=== PATIENT | female | born 1985 | race Caucasian/White ===

== ENCOUNTER 2016-10-15 16:43 | Emergency (ER) | payer BC ==
[2016-10-15 17:04] VITALS: BP 155/100
--- NOTE | 2016-10-16 11:29 | EDM.PDOC ---
Scribed by Tika Becerra 10/15/16 [id number] for Carlos Otoole MD ED HPI GENERAL MEDICAL PROBLEM - General Source of Information: Reports: Patient, RN, RN Notes Reviewed History Limitations: Reports: No Limitations - History of Present Illness Onset: Today Location: Reports: Pelvis Quality: Reports: Ache Improves with: Reports: None Worsens with: Reports: None Associated Symptoms: Reports: No Other Symptoms <Carlos Otoole - Last Filed: 10/15/16 17:55> <Hollie Cifuentes - Last Filed: 10/15/16 19:12> - General Chief Complaint: CONTENT ADMINISTRATOR Problem Stated Complaint: PREG 5-6 WEEKS .BLEEDING. Time Seen by Provider: 10/15/16 17:13 - History of Present Illness INITIAL COMMENTS - FREE TEXT/NARRATIVE: Patient before lunch had discoloration on toilet paper. Her last LMP was September 07. She had a positive home test last week. Her CONTENT ADMINISTRATOR is Dr. Janee Hillman. Patient talked to Dr. Janee Hillman office and was told that she needed a RhoGAM shot. (Tika Becerra) - Related Data Allergies Allergy/AdvReac Type Severity Reaction Status Date / Time No Known Allergies Allergy Verified 10/15/16 17:01 Home Meds: Home Meds Pnv No.122/Iron/Folic Acid [ Multi Tablet] 1 each PO DAILY 10/15/16 [ History] Past Medical History - Past Health History Medical/Surgical History: Denies Medical/Surgical History HEENT History: Reports: None Cardiovascular History: Reports: None Respiratory History: Reports: None Gastrointestinal History: Reports: None Genitourinary History: Reports: None CONTENT ADMINISTRATOR History: Reports: Musculoskeletal History: Reports: None Neurological History: Reports: None Psychiatric History: Reports: None Endocrine/Metabolic History: Reports: None Hematologic History: Reports: None Immunologic History: Reports: None Oncologic (Cancer) History: Reports: None Dermatologic History: Reports: None - Infectious Disease History Infectious Disease History: Reports: None - Past Surgical History HEENT Surgical History: Reports: None Cardiovascular Surgical History: Reports: None Respiratory Surgical History: Reports: None GI Surgical History: Reports: None Female Surgical History: Reports: Oophorectomy Endocrine Surgical History: Reports: None Neurological Surgical History: Reports: None Musculoskeletal Surgical History: Reports: None Dermatological Surgical History: Reports: None <XiangCarlos Klever - Last Filed: 10/15/16 17:55> Social & Family History - Family History Family Medical History: Noncontributory - Tobacco Use Smoking Status *Q: Former Smoker Used Tobacco, but Quit: Yes Month Tobacco Last Used: September 2016 Second Hand Smoke Exposure: No - Caffeine Use Caffeine Use: Reports: None - Alcohol Use Days Per Week of Alcohol Use: 0 - Recreational Drug Use Recreational Drug Use: No - Living Situation & Occupation Living situation: Reports: with Family <Carlos Otoole - Last Filed: 10/15/16 17:55> ED ROS GENERAL - Review of Systems Review Of Systems: ROS reveals no pertinent complaints other than HPI. <Carlos Otoole - Last Filed: 10/15/16 17:55> ED EXAM - Physical Exam Exam: See Below Exam Limited By: No Limitations General Appearance: Alert, WD/WN, No Apparent Distress Head: Atraumatic, Normocephalic Neck: Normal Inspection, Supple, Non-Tender, Full Range of Motion Respiratory/Chest: No Respiratory Distress, Lungs Clear, Normal Breath Sounds, No Accessory Muscle Use, Chest Non-Tender Cardiovascular: Normal Peripheral Pulses, Regular Rate, Rhythm, No Edema, No Gallop, No JVD, No Murmur, No Rub GI/Abdominal Exam: Normal Bowel Sounds, Soft, Non-Tender, No Organomegaly, No Distention, No Abnormal Bruit, No Mass, Pelvis Stable Rectal Exam: Deferred Back Exam: Normal Inspection, Full Range of Motion, NT Extremities: Normal Inspection, Normal Range of Motion, Non-Tender, Normal Capillary Refill, No Pedal Edema Neurological: Alert, Oriented, CN II-XII Intact, Normal Cognition, Normal Gait, Normal Reflexes, No Motor/Sensory Deficits Psychiatric: Normal Affect, Normal Mood Skin Exam: Warm, Dry, Intact, Normal Color, No Rash Lymphatic: No Adenopathy <Carlos Otoole - Last Filed: 10/15/16 17:55> Course <Carlos Otoole - Last Filed: 10/15/16 17:55> <Hollie Cifuentes - Last Filed: 10/15/16 19:12> - Vital Signs Last Recorded V/S: Last Vital Signs Temp 98.7 F 10/15/16 17:03 Pulse 97 09/07/17 17:03 Resp 16 10/15/16 17:03 BP 155/100 H 10/15/16 17:03 Pulse Ox 100 10/15/16 17:03 - Orders/Labs/Meds Orders: Active Orders 24 hr Category Date Time Status ABO/RH TYPE [BBK] Stat Lab 10/15/16 17:31 Results RH IMMUNE GLOBULIN [BBK] Stat Lab 10/15/16 17:31 Results RHOGAM, MISCARRIAGE [RHIG WORKUP, MISCARRIAGE] [BBK] Lab 10/15/16 18:53 Ordered Stat TYPE AND SCREEN [BBK] Stat Lab 10/15/16 17:31 Results WEAK D TEST [BBK] Stat Lab 10/15/16 17:31 Results Labs: Laboratory Tests 10/15/16 10/15/16 10/15/16 Range/Units 17:15 17:15 17:31 HCG, Quant 32 H (0-25) mIU/ml Beta HCG, Quant < 1050 mIU/ml Urine Color Yellow (YELLOW) Urine Appearance Slightly cloudy (CLEAR) Urine pH 6.0 (5.0-9.0) Ur Specific [place] 1.015 (1.005-1.030) Urine Protein Negative (NEGATIVE) Urine Glucose (UA) Negative (NEGATIVE) Urine Ketones Negative (NEGATIVE) Urine Occult Blood Large H (NEGATIVE) Urine Nitrite Negative (NEGATIVE) Urine Bilirubin Negative (NEGATIVE) Urine Urobilinogen 0.2 (0.2-1.0) mg/dL Ur Leukocyte Esterase Negative (NEGATIVE) Urine RBC 40-50 H /HPF Urine WBC 0-5 (0-5/HPF) /HPF Ur Epithelial Cells Rare /HPF Urine Bacteria Rare (0-FEW/HPF) /HPF Urine HCG, Qual Negative Blood Type 10/15/16 10/15/16 Range/Units 17:31 17:31 HCG, Quant (0-25) mIU/ml Beta HCG, Quant mIU/ml Urine Color (YELLOW) Urine Appearance (CLEAR) Urine pH (5.0-9.0) Ur Specific [place] (1.005-1.030) Urine Protein (NEGATIVE) Urine Glucose (UA) (NEGATIVE) Urine Ketones (NEGATIVE) Urine Occult Blood (NEGATIVE) Urine Nitrite (NEGATIVE) Urine Bilirubin (NEGATIVE) Urine Urobilinogen (0.2-1.0) mg/dL Ur Leukocyte Esterase (NEGATIVE) Urine RBC /HPF Urine WBC (0-5/HPF) /HPF Ur Epithelial Cells /HPF Urine Bacteria (0-FEW/HPF) /HPF Urine HCG, Qual Blood Type A NEGATIVE A NEGATIVE Departure <Carlos Otoole - Last Filed: 10/15/16 17:55> - Departure Time of Disposition: 19:20 Condition: Good <Hollie Cifuentes - Last Filed: 10/15/16 19:12> - Departure Disposition: Home, Self-Care 01 Clinical Impression: Threatened - Discharge Information Instructions: Threatened Miscarriage, [id number] Forms: ED Department Discharge Additional Instructions: Call Dr. Navarrete office right away in the morning for a transvaginal ultrasound Return to the ER if you have any heavy bleeding or abdominal pain/severe cramping Drink plenty of fluids - My Orders Last 24 Hours: My Active Orders 10/15/16 17:31 ABO/RH TYPE [BBK] Stat RH IMMUNE GLOBULIN [BBK] Stat TYPE AND SCREEN [BBK] Stat WEAK D TEST [BBK] Stat 10/15/16 18:53 RHOGAM, MISCARRIAGE [RHIG WORKUP, MISCARRIAGE] [BBK] Stat - Assessment/Plan Last 24 Hours: My Active Orders 10/15/16 17:31 ABO/RH TYPE [BBK] Stat RH IMMUNE GLOBULIN [BBK] Stat TYPE AND SCREEN [BBK] Stat WEAK D TEST [BBK] Stat 10/15/16 18:53 RHOGAM, MISCARRIAGE [RHIG WORKUP, MISCARRIAGE] [BBK] Stat I have read and agree with the documentation that has been completed regarding this visit. By signing this record, I attest that the documentation was completed in my physical presence and is an accurate record of the encounter.
== END 2016-10-15 19:32 | disposition home or self-care (01) ==
LOC: DL.ED 16:43
DX: O20.0 Threatened abortion (principal); Z87.891 Personal history of nicotine dependence
CPT/HCPCS: 36415; 81001; 81025; 84702; 86850; 86900; 86901; 96372; 99284; J2790

== ENCOUNTER 2017-06-06 08:59 | Emergency (ER) | payer BC ==
[2017-06-06 09:47] LABS: CHLORIDE,CL 105 mmol/L (101-111); SODIUM,NA 136 mmol/L (135-145)
[2017-06-06 10:39] VITALS: BP 144/87
--- NOTE | 2017-06-06 10:42 | EDM.PDOC ---
ED HPI GENERAL MEDICAL PROBLEM - General Chief Complaint: MONOTYPE CASTER Problem Stated Complaint: MISCARRIAGE Time Seen by Provider: 06/06/17 09:15 Source of Information: Reports: Patient, RN, RN Notes Reviewed History Limitations: Reports: No Limitations - History of Present Illness INITIAL COMMENTS - FREE TEXT/NARRATIVE: Pt presents to the ER with c/o vaginal bleeding during . Pt states she is 11 weeks and passed the fetus in the toilet this morning. She states she saw passed tissue. Pt states she has had minimal cramping, but is starting to have some cramps at this time. Pt states she is in need of the Rhogam shot. Pt denies any further symptoms. Onset: Today, Sudden Uterine Pain Score (Numeric/FACES): 3 - Related Data Allergies Allergy/AdvReac Type Severity Reaction Status Date / Time No Known Allergies Allergy Verified 06/06/17 09:11 Home Meds: Home Meds Pnv No.122/Iron/Folic Acid [ Multi Tablet] 1 each PO DAILY 10/15/16 [ History] Past Medical History - Past Health History Medical/Surgical History: Denies Medical/Surgical History HEENT History: Reports: None Cardiovascular History: Reports: None Respiratory History: Reports: None Gastrointestinal History: Reports: None Genitourinary History: Reports: None MONOTYPE CASTER History: Reports: , Spontaneous Musculoskeletal History: Reports: None Neurological History: Reports: None Psychiatric History: Reports: None Endocrine/Metabolic History: Reports: None Hematologic History: Reports: None Immunologic History: Reports: None Oncologic (Cancer) History: Reports: None Dermatologic History: Reports: None - Infectious Disease History Infectious Disease History: Reports: None - Past Surgical History Head Surgeries/Procedures: Reports: None HEENT Surgical History: Reports: None Cardiovascular Surgical History: Reports: None Respiratory Surgical History: Reports: None GI Surgical History: Reports: None Female Surgical History: Reports: Oophorectomy Endocrine Surgical History: Reports: None Neurological Surgical History: Reports: None Musculoskeletal Surgical History: Reports: None Dermatological Surgical History: Reports: None Social & Family History - Family History Family Medical History: Noncontributory - Tobacco Use Smoking Status *Q: Never Smoker Used Tobacco, but Quit: Yes Month/Year Tobacco Last Used: September 2016 Second Hand Smoke Exposure: No - Caffeine Use Caffeine Use: Reports: Coffee, Soda - Alcohol Use Days Per Week of Alcohol Use: 0 - Recreational Drug Use Recreational Drug Use: No - Living Situation & Occupation Living situation: Reports: with Family ED ROS GENERAL - Review of Systems Review Of Systems: ROS reveals no pertinent complaints other than HPI. ED EXAM - Physical Exam Exam: See Below Exam Limited By: No Limitations General Appearance: Alert, WD/WN, No Apparent Distress Eye Exam: Bilateral Eye: EOMI, Normal Inspection Ears: Normal External Exam Nose: Normal Inspection Throat/Mouth: Normal Inspection, Normal Voice, No Airway Compromise Head: Atraumatic, Normocephalic Neck: Normal Inspection Respiratory/Chest: No Respiratory Distress, Chest Non-Tender Cardiovascular: Normal Peripheral Pulses, Regular Rate, Rhythm, No Edema, No Gallop, No JVD, No Murmur, No Rub GI/Abdominal Exam: Normal Bowel Sounds, Soft, Tender Rectal Exam: Deferred (Female) Exam: Other (not completed at this time) Back Exam: Normal Inspection, Full Range of Motion Extremities: Normal Inspection, Normal Range of Motion, Non-Tender, No Pedal Edema, Normal Capillary Refill Neurological: Alert, Oriented, CN II-XII Intact, Normal Cognition, Normal Gait, Normal Reflexes, No Motor/Sensory Deficits Psychiatric: Depressed Mood, Flat Affect, Tearful Skin Exam: Warm, Dry, Intact, Normal Color, No Rash Lymphatic: No Adenopathy Course - Vital Signs Last Recorded V/S: Last Vital Signs Temp 98.9 F 06/06/17 10:38 Pulse 76 06/06/17 10:38 Resp 18 06/06/17 10:38 BP 144/87 H 06/06/17 10:38 Pulse Ox 99 06/06/17 09:02 - Orders/Labs/Meds Orders: Active Orders 24 hr Category Date Time Status DRUG SCREEN URINE BIORAD [URCHEM] Stat Lab 06/06/17 09:26 Ordered UA W/MICROSCOPIC [URIN] Stat Lab 06/06/17 09:26 Ordered Labs: Laboratory Tests 06/06/17 06/06/17 06/06/17 Range/Units 09:20 09:20 09:20 WBC 11.4 H (5.0-10.0) 10^3/uL RBC 4.52 (4.2-5.4) 10^6/uL Hgb 13.6 (12.0-16.0) g/dL Hct 39.6 (37.0-47.0) % MCV 87.6 (80-100) fL MCH 30.1 (27.0-34.0) pg MCHC 34.3 (33.0-35.0) g/dL Plt Count 215 (150-450) 10^3/uL Neut % (Auto) 80.4 H (42.2-75.2) % Lymph % (Auto) 14.2 L (20.5-50.1) % [place] % (Auto) 3.5 (2-8) % Eos % (Auto) 1.8 (1.0-3.0) % Baso % (Auto) 0.1 (0.0-1.0) % Sodium 136 (135-145) mmol/L Potassium 3.6 (3.6-5.0) mmol/L Chloride 105 (101-111) mmol/L Carbon Dioxide 23.0 (21.0-31.0) mmol/L Anion Gap 11.6 BUN 8 (7-18) mg/dL Creatinine 0.7 (0.6-1.3) mg/dL Est Cr Clr Drug Dosing 113.24 mL/min Estimated GFR (MDRD) > 60 BUN/Creatinine Ratio 11.42 Glucose 109 H (74-105) mg/dL Calcium 9.0 (8.4-10.2) mg/dl Total Bilirubin 0.6 (0.2-1.0) mg/dL AST 18 (10-42) IU/L ALT 29 (10-60) IU/L Alkaline Phosphatase 24 L (42-121) IU/L Total Protein 7.0 (6.7-8.2) g/dl Albumin 4.1 (3.2-5.5) g/dl Globulin 2.9 Albumin/Globulin Ratio 1.41 HCG, Quant > 1324 H (0-25) mIU/ml Beta HCG, Quant 8835 mIU/ml Urine Color (YELLOW) Urine Appearance (CLEAR) Urine pH (5.0-9.0) Ur Specific [place] (1.005-1.030) Urine Protein (NEGATIVE) Urine Glucose (UA) (NEGATIVE) Urine Ketones (NEGATIVE) Urine Occult Blood (NEGATIVE) Urine Nitrite (NEGATIVE) Urine Bilirubin (NEGATIVE) Urine Urobilinogen (0.2-1.0) mg/dL Ur Leukocyte Esterase (NEGATIVE) Urine RBC /HPF Urine WBC (0-5/HPF) /HPF Ur Epithelial Cells /HPF Urine Bacteria (0-FEW/HPF) /HPF Urine Mucus /LPF Urine Opiates Screen (NEGATIVE) Ur Oxycodone Screen (NEGATIVE) Urine Methadone Screen (NEGATIVE) Ur Barbiturates Screen (NEGATIVE) U Tricyclic Antidepress (NEGATIVE) Ur Phencyclidine Scrn (NEGATIVE) Ur Amphetamine Screen (NEGATIVE) U Methamphetamines Scrn (NEGATIVE) Urine MDMA Screen (NEGATIVE) U Benzodiazepines Scrn (NEGATIVE) Urine Cocaine Screen (NEGATIVE) U Marijuana (THC) Screen (NEGATIVE) Blood Type (Referred) Rhogam Indicated 06/06/17 06/06/17 06/06/17 Range/Units 09:20 09:26 09:26 WBC (5.0-10.0) 10^3/uL RBC (4.2-5.4) 10^6/uL Hgb (12.0-16.0) g/dL Hct (37.0-47.0) % MCV (80-100) fL MCH (27.0-34.0) pg MCHC (33.0-35.0) g/dL Plt Count (150-450) 10^3/uL Neut % (Auto) (42.2-75.2) % Lymph % (Auto) (20.5-50.1) % [place] % (Auto) (2-8) % Eos % (Auto) (1.0-3.0) % Baso % (Auto) (0.0-1.0) % Sodium (135-145) mmol/L Potassium (3.6-5.0) mmol/L Chloride (101-111) mmol/L Carbon Dioxide (21.0-31.0) mmol/L Anion Gap BUN (7-18) mg/dL Creatinine (0.6-1.3) mg/dL Est Cr Clr Drug Dosing mL/min Estimated GFR (MDRD) BUN/Creatinine Ratio Glucose (74-105) mg/dL Calcium (8.4-10.2) mg/dl Total Bilirubin (0.2-1.0) mg/dL AST (10-42) IU/L ALT (10-60) IU/L Alkaline Phosphatase (42-121) IU/L Total Protein (6.7-8.2) g/dl Albumin (3.2-5.5) g/dl Globulin Albumin/Globulin Ratio HCG, Quant (0-25) mIU/ml Beta HCG, Quant mIU/ml Urine Color Red (YELLOW) Urine Appearance Turbid (CLEAR) Urine pH 7.0 (5.0-9.0) Ur Specific [place] 1.025 (1.005-1.030) Urine Protein >=300 H (NEGATIVE) Urine Glucose (UA) Negative (NEGATIVE) Urine Ketones Negative (NEGATIVE) Urine Occult Blood Large H (NEGATIVE) Urine Nitrite Negative (NEGATIVE) Urine Bilirubin Negative (NEGATIVE) Urine Urobilinogen 0.2 (0.2-1.0) mg/dL Ur Leukocyte Esterase Negative (NEGATIVE) Urine RBC Packed H /HPF Urine WBC Not seen (0-5/HPF) /HPF Ur Epithelial Cells Few /HPF Urine Bacteria Not seen (0-FEW/HPF) /HPF Urine Mucus Not seen /LPF Urine Opiates Screen Negative (NEGATIVE) Ur Oxycodone Screen Negative (NEGATIVE) Urine Methadone Screen Negative (NEGATIVE) Ur Barbiturates Screen Negative (NEGATIVE) U Tricyclic Antidepress Negative (NEGATIVE) Ur Phencyclidine Scrn Negative (NEGATIVE) Ur Amphetamine Screen Negative (NEGATIVE) U Methamphetamines Scrn Negative (NEGATIVE) Urine MDMA Screen Negative (NEGATIVE) U Benzodiazepines Scrn Negative (NEGATIVE) Urine Cocaine Screen Negative (NEGATIVE) U Marijuana (THC) Screen Positive H (NEGATIVE) Blood Type (Referred) A neg Rhogam Indicated Yes - Radiology Interpretation Free Text/Narrative:: US Complete: No intrauterine gestational sac visualized. Prior examination demonstrated a 7 week 1 day gestation. Findings consistent with spontaneous miscarriage. Thickened complex echogenic endometrial stripe reflecting retained products of conception or clots. These findings were called to the provider by Dr. Davin Rivera at 1142 on See Rad report Departure - Departure Time of Disposition: 10:41 Disposition: Home, Self-Care 01 Condition: Fair Clinical Impression: Complete - Discharge Information Instructions: Miscarriage, [id number] Referrals: PCP,Unobtain [Primary Care Provider] - Forms: ED Department Discharge Additional Instructions: Return to the ER if bleeding increases Follow up with Dr. Weiss tomorrow - My Orders Last 24 Hours: My Active Orders 06/06/17 09:26 DRUG SCREEN URINE BIORAD [URCHEM] Stat UA W/MICROSCOPIC [URIN] Stat - Assessment/Plan Last 24 Hours: My Active Orders 06/06/17 09:26 DRUG SCREEN URINE BIORAD [URCHEM] Stat UA W/MICROSCOPIC [URIN] Stat
== END 2017-06-06 10:45 | disposition home or self-care (01) ==
LOC: DL.ED 08:59
DX: O03.9 Complete or unspecified spontaneous abortion without complication (principal)
CPT/HCPCS: 36415; 76815; 76817; 80053; 80305; 81001; 84702; 85025; 96372; 99284; J2790